=== PATIENT | male | born 1960 | race Hispanic/Latino ===

== ENCOUNTER 2019-02-28 05:48 | Observation (INO) | payer BC ==
[~2019-02-28] VITALS: Ht 175.3 cm; Wt 100.0 kg
[~2019-02-28 05:48] MED LIST: JOINT HEALTH PO; LISINOPRIL10 MG PO; LOVASTATIN40 MG PO; NAPROXEN250 MG PO; OMEPRAZOLE40 MG PO
[2019-02-28] MEDS ORDERED: ROPIVACAINE 246.25 MG, EPINEPHRINE HCL 1:1000 1ML 0.5 MG, CLONIDINE HCL 0.08 MG, KETORO... INJ ONE ×5 (06:30)
[2019-02-28] MEDS ORDERED: CELECOXIB 200 MG CAP ONE (06:34)
[2019-02-28] MEDS ORDERED: DEXAMETHASONE SOD PHOS 10 MG/1 ML VIAL ONE (06:35)
[2019-02-28] MEDS ORDERED: CEFAZOLIN SOD 2 GM/D5W 50ML 50 ML IV ONE (06:35)
[2019-02-28] MEDS ORDERED: GABAPENTIN 300 MG CAP ONE (06:35)
[2019-02-28] MEDS ORDERED: VANCOMYCIN HCL 1,000 MG ONE (06:45)
[2019-02-28] MEDS ORDERED: SODIUM CHLORIDE 0.9% 500ML 500 ML ONE (06:45)
[2019-02-28] MEDS ORDERED: BACITRACIN 50,000 UNIT VIAL ONE (06:46)
[2019-02-28] MEDS ORDERED: TRANEXAMIC ACID 1,000 MG/10 ML ML ONE (06:46)
[2019-02-28] MEDS ORDERED: DIPHENHYDRAMINE HCL INJ 50 MG/ML VIAL IM/IV PRN (09:30)
[2019-02-28] MEDS ORDERED: ONDANSETRON HCL INJ 2MG/ML 2ML 2 MG/ML VIAL IV PRN (09:30)
[2019-02-28] MEDS ORDERED: ACETAMINOPHEN 650 MG SUPP PR PRN (09:30)
[2019-02-28] MEDS ORDERED: DOCUSATE SODIUM 100 MG CAP PO PRN (09:30)
[2019-02-28] MEDS ORDERED: PROMETHAZINE HCL (IM) 25 MG/ML VIAL INJ PRN (09:30)
[2019-02-28] MEDS ORDERED: ZOLPIDEM TARTRATE 5 MG TAB PO PRN (09:30)
[2019-02-28] MEDS ORDERED: HYDROCODONE/APAP 7.5MG-325MG 1 EA TAB PO PRN (09:30)
[2019-02-28] MEDS ORDERED: HYDROCODONE/APAP 5MG-325MG TAB PO PRN (09:30)
[2019-02-28] MEDS ORDERED: KETOROLAC TROMETHAMINE 30 MG/ML VIAL IV PRN (09:30)
[2019-02-28] MEDS ORDERED: FENTANYL CITRATE/PF 100MCG/2 ML INJ ONE ×2 (09:50→19:47)
[2019-02-28] MEDS ORDERED: HYDROMORPHONE 2MG/ML 2 MG/ML ML ONE (10:13)
[2019-02-28] MEDS: SODIUM CHLORIDE 0.9% 1000ML 1,000 ML IV SCH ×2 (10:15→19:29)
--- NOTE | 2019-02-28 10:24 | NUR ---
RECEIVED REPORT FROM [facility]ANU[facility] IN RECOVERY. AWAITING FOR PT TO ARRIVE TO FLOOR
--- NOTE | 2019-02-28 10:35 | NUR ---
RECEIVED PT TO FLOOR AA0X3 . PT HAS A RIGHT TOTAL KNEE. DRESSING IS DRY AND INTACT. ICE BAG IN PLACE. PT IS ON IV FLUIDS TO THE LEFT HAND 20 NS 100 CC/HR. SITE IS CLEAN AND DRY. FOOT PUMPS CONNECTED. WILL CONTINUE TO MONITOR PT , SIDE RAILSX2, BED WHEELS LOCKED, CALL LIGHT IS WITHIN EASY REACH, INSTRUCTED TO CALL FOR ASSISTANCE IF NEEDED
[2019-02-28 10:40] VITALS: BP 114/83
[2019-02-28 12:30] VITALS: BP 141/83
--- NOTE | 2019-02-28 12:45 | Diagnostic Imaging Report ---
Exam: Portable postoperative views of the right knee History: Total knee replacement Comparison: None available Findings: Total knee replacement is noted with good appearance of the prosthesis. Air within the soft tissues is present and there are midline surgical reginald. Impression: Status post total knee replacement. Signed by: Dr. Dima Saldivar DO on 02/28/2019 12:41 PM
[2019-02-28] MEDS: ACETAMINOPHEN 1000 MG/100 ML IV SCH ×4 (13:08→23:59)
[2019-02-28] MEDS: CEFAZOLIN SOD 1 GM/NS 50ML 50 ML IV SCH ×2 (15:19→21:46)
[2019-02-28 15:41] VITALS: BP 130/78
[2019-02-28] MEDS: ASPIRIN 325 MG TAB PO SCH (17:26)
[2019-02-28] MEDS: CELECOXIB 100 MG CAP PO SCH (17:26)
[2019-02-28] MEDS ORDERED: SEVOFLURANE INHAL SOLN 250 ML PEN BTL ONE (19:02)
[2019-02-28] MEDS ORDERED: PROPOFOL IV EMULSION 10 MG/ML 20 ML VIAL ONE (19:02)
[2019-02-28] MEDS ORDERED: LIDOCAINE HCL 2% LOCAL INJ 5 ML SDV VIAL INJ ONE (19:02)
[2019-02-28] MEDS ORDERED: ONDANSETRON HCL INJ 2MG/ML 2ML 2 MG/ML VIAL ONE (19:02)
[2019-02-28] MEDS ORDERED: BUPIVACAINE 0.25% 30ML SDV INJ ONE (19:17)
[2019-02-28] MEDS ORDERED: EPINEPHRINE HCL 1:1000 1ML 1 MG/ML AMP ONE (19:17)
[2019-02-28] MEDS ORDERED: MIDAZOLAM HCL 2 MG/2 ML VIAL ONE (19:47)
[2019-02-28 20:00] VITALS: BP 111/59
[2019-02-28] MEDS ORDERED: SIMVASTATIN 20 MG TAB PO SCH (21:00)
[2019-02-28] MEDS ORDERED: SIMVASTATIN 40 MG TAB PO SCH (21:00)
[2019-02-28 21:32] VITALS: BP 111/59
[2019-03-01] VITALS: BP 109/61
[2019-03-01 04:00] VITALS: BP 113/62
[2019-03-01] MEDS: CEFAZOLIN SOD 1 GM/NS 50ML 50 ML IV SCH (05:21)
[2019-03-01] MEDS: SODIUM CHLORIDE 0.9% 1000ML 1,000 ML IV SCH (05:29)
--- NOTE | 2019-03-01 05:46 | NUR ---
cpm at 70
[2019-03-01] MEDS: ACETAMINOPHEN 1000 MG/100 ML IV SCH (05:58)
[2019-03-01 07:01] LABS: HEMATOCRIT 36.3 % (38.2-49.6); HEMOGLOBIN 12.3 g/dL (14.0-18.0)
--- NOTE | 2019-03-01 07:10 | NUR ---
PT RESTING IN BED AA0X3. PT IS IN NO S.S OF DISTRESS. DENIES PAIN AT THIS TIME PT IS ON CPM TOLERATING WELL. DRESSING TO THE RIGHT KNEE IS DRY AND INTACT PT HAS A LEFT HAND 20 SL PATENT AND DRY WILL CONTINUE WITH PLAN OF CARE (PHYSICAL THERAPY, SX CLEARANCE) AND PBLY DC LATER TODAY SIDE RAILSX3, BED WHEELS LOCKED ,CALL LIGHT IS WITHIN EASY REACH, INSTRUCTED TO CALL FOR ASSISTANCE IF NEEDED
--- NOTE | 2019-03-01 07:36 | NUR ---
REMOVED FROM CPM AT THIS TIME
[2019-03-01 08:20] VITALS: BP 106/57
[2019-03-01] MEDS: CELECOXIB 100 MG CAP PO SCH (08:20)
[2019-03-01] MEDS: ASPIRIN 325 MG TAB PO SCH (08:20)
[2019-03-01 08:25] VITALS: BP 106/57
[2019-03-01] MEDS ORDERED: LISINOPRIL 10 MG TAB PO SCH (09:00)
[2019-03-01] MEDS ORDERED: PANTOPRAZOLE SOD 40 MG TABEC PO SCH (09:00)
[2019-03-01] MEDS ORDERED: ACETAMINOPHEN 1000 MG/100 ML IV PRN (09:30)
--- NOTE | 2019-03-01 11:09 | NUR ---
CASE MANAGEMENT ASSESSMENT [employer] Front Desk Agent to bedside to discuss plan of care with patient/family. CM/SW role and care transitions discussed. Anticipated discharge plan discussed along with duration of care. CM/SW discussed patients right to make decisions in care. CM/SW work hours given. Patient lives: with Admit/Transfer: from PACU Hospital/ER visits since last admit: 0 POA/Emergency contact: July Joaquin [phone] Current/Previous Home Health: none previously PCP/Follow-up Care: will follow up with Dr. Brooks as instructed after discharge. Dr. Brooks still to round today Current/Previous DME: walker and bedside commode has been delivered to bedside. CPM will be delivered once pt discharges home. Medications (referring to index hospitalization or the first time you were in the hospital) a. Were changes made in your medications when you were in the hospital on [date of index hospitalization]? n/a b. Did you understand the changes? n/a c. Were you able to obtain your new medications right away? n/a d. Were you able to take your medications like the doctor wanted you to? n/a e. Did the hospital give you an accurate, easy to understand list of medications when you left? n/a Scale of 1-10 how comfortable does patient feel with disease management in outpatient setting: Other Services: none Employment Status: employed Areas of Concerns: recent surgery Referral Needs: home health Home health orders were sent by Dr. Brooks's office to [facility]. Choice letter in chart. Copy to pt. Moisés Sandoval from [facility] has been by to see pt. He stated they will see pt tomorrow. Education Needs: post operative care IMM/VAZQUEZ given and signed (if applicable): n/a Goal for discharge: home with home health CM/SW left business card at the bedside with contact information. Name and number was also written on the patients whiteboard. Patient verbalized understanding of discussion. CM will follow-up with ongoing discharge and transition of care needs.
[2019-03-01] MEDS ORDERED: TYLENOL WITH C1 EACH PO (12:19)
[2019-03-01] MEDS ORDERED: COLACE100 MG PO (12:19)
[2019-03-01] MEDS ORDERED: NORCO 7.5-3251 EACH PO (12:20)
[2019-03-01 12:46] VITALS: BP 125/66
[2019-03-01] MEDS ORDERED: ONDANSETRON HCL 4 MG ORAL DISINTEGRATING TAB PO PRN ×2 (13:00)
--- NOTE | 2019-03-01 14:00 | NUR ---
dc instructions and prescriptions given. pt verbalized understanding. iv dc, pressure dressing applied and taped upon putting pt on wheelchair. pt slipped (right shoulder gave out) and lost gold assayer of walker. pt however did not land on floor, held to wheelchair side rails. asked pt to sit on floor, pt sat on floor and got up with walker assistance. right knee dressing remains dry. pt did not hurt nor hit himself anywhere. pt is now off unit to home
--- NOTE | 2019-03-01 17:46 | Operative Report ---
DATE OF PROCEDURE: 02/28/2019 SURGEON: Leif Brooks MD PREOPERATIVE DIAGNOSIS: Osteoarthritis, right knee. POSTOPERATIVE DIAGNOSIS: Osteoarthritis, right knee. PROCEDURE: Right total knee arthroplasty. INDICATIONS: The patient is a 58-year-old gentleman, who has end-stage arthritis in his right knee. He has failed conservative management and would like to proceed with a right total knee replacement. The risks and benefits of the procedure have been discussed. The recovery and the importance of physical therapy have all been explained. He states he understands and wishes to proceed. PROCEDURE IN DETAIL: The patient was brought to the operating room and placed under general anesthetic. He received a regional block, prophylactic antibiotics, and tranexamic acid in the holding area. His right lower extremity was prepped and draped in a sterile manner. A preoperative time-out was performed. The extremity was exsanguinated and a proximal tourniquet was inflated to 300 mmHg. An anterior approach with a medial parapatellar arthrotomy was made to the right knee. Clear synovial fluid was removed from the joint. Soft tissue releases were performed to bring the knee up into flexion with the patella everted. Meniscal remnants and marginal osteophytes were removed. A [employer] cruciate-preserving system was used throughout the case. An extramedullary cutting guide was used to resect the proximal tibia. A central fin punch was impacted and attention was directed towards the distal femur. An intramedullary cutting guide was used to resect the distal femur in 5 degrees of valgus and external rotation referencing off a combination of landmarks including Whitesides line, the epicondylar axis, and the posterior condyles. The femoral component was a size #8. The anterior and posterior cuts were made. A trial reduction was performed. A 10 mm medial congruent tibial insert was felt to provide appropriate soft tissue balancing. The patella was resurfaced with a 32 mm patellar button. The thickness was checked before and after and was right at 23 mm. The patellar tracking was concentric. The trial implants were then removed. A 100 mL premixed pericapsular KEYLA injection was placed into the surrounding soft tissue. The knee was thoroughly irrigated with a shower tip pulsatile lavage. Throughout the case, the knee had also been irrigated frequently with a spray bottle containing diluted polymyxin and vancomycin. The components were cemented into place using a single mix of Palacos cement preloaded with antibiotics. Care was taken to remove extravasated cement. The wound was further irrigated while the cement cured. 500 mg of vancomycin powder was then placed into the joint. The arthrotomy was closed with interrupted #1 Ethibond. The knee was put through flexion and extension to ensure a secure closure. The skin was closed with subcuticular Vicryl and reginald. A sterile bandage was applied. The patient was extubated and transported to the recovery room in stable condition. Blood loss was minimal and all needle and sponge counts were correct. Leif Brooks MD DR/JUDIT /[id number]
== END 2019-03-01 14:00 | disposition home health service (06) ==
LOC: OR 05:48 → PACU V 09:31 → MED/SURG 10:42
PROVIDERS: ADMIT Specialist; ATTEND Specialist
DX: M17.11 Unilateral primary osteoarthritis, right knee (principal); I10 Essential (primary) hypertension; E78.00 Pure hypercholesterolemia, unspecified; K21.9 Gastro-esophageal reflux disease without esophagitis
CPT/HCPCS: 27447; 36415; 73560; 85014; 85018; 86850; 86900; 86920; 97116 ×2; 97161; C1713; C1776 ×3; G0378 ×2; J0131 ×2; J0171; J0690 ×3; J1100; J1170; J1885; J2001; J2250; J2405; J2704; J2795; J3370; J7030; J7040; S0164

== ENCOUNTER 2019-04-27 08:00 | Outpatient (RCR) | payer BC ==
[~2019-04-27 08:00] MED LIST changes: +COLACE100 MG PO; +NORCO 7.5-3251 EACH PO; +TYLENOL WITH C1 EACH PO
== END 2019-05-01 ==
LOC: PT 08:00
PROVIDERS: ATTEND Specialist
DX: Z96.651 Presence of right artificial knee joint (principal); Z47.1 Aftercare following joint replacement surgery; M25.561 Pain in right knee; M62.81 Muscle weakness (generalized)

== ENCOUNTER → 2019-06-01 | Outpatient (RCR) | payer BC | LOC: PT 05-02 12:49 | PROVIDERS: ATTEND Specialist | DX: Z96.651 Presence of right artificial knee joint (principal); Z47.1 Aftercare following joint replacement surgery; M25.561 Pain in right knee; M62.81 Muscle weakness (generalized) ==

== ENCOUNTER 2019-06-30 16:00 | Outpatient (RCR) | payer BC | END 2019-07-02 | LOC: PT 16:00 | PROVIDERS: ATTEND Specialist | DX: Z96.651 Presence of right artificial knee joint (principal); Z47.1 Aftercare following joint replacement surgery; M25.561 Pain in right knee; M62.81 Muscle weakness (generalized) ==

== ENCOUNTER 2019-07-06 17:00 | Outpatient (RCR) | payer BC | END 2019-08-01 | LOC: PT 17:00 | PROVIDERS: ATTEND Specialist | DX: Z96.651 Presence of right artificial knee joint (principal); Z47.1 Aftercare following joint replacement surgery; M62.81 Muscle weakness (generalized); M25.561 Pain in right knee ==